=== PATIENT | female | born 1975 | race Caucasian/White ===

== ENCOUNTER 2021-08-07 06:24 | Outpatient (REF) | payer OTHER, SELFPAY | END 2021-08-07 06:25 | disposition home or self-care (01) | LOC: HO.HMGCLDS 06:24 | PROVIDERS: PCP Nurse Practitioner Family; Visit Provider Internal Medicine | DX: Z20.822 Contact with and (suspected) exposure to COVID-19 (principal) | CPT/HCPCS: C9803; U0003; U0005 ==